=== PATIENT | male | born 1990 | race Caucasian/White ===

== ENCOUNTER 2018-02-22 23:59 | Emergency (ER) | payer OTHER ==
[2018-02-23 00:07] VITALS: Ht 170.2 cm
[2018-02-23 01:34] VITALS: BP 141/89
== END 2018-02-23 01:34 | disposition home or self-care (01) ==
LOC: ED 23:59
DX: N45.1 Epididymitis (principal)
CPT/HCPCS: Q0092

== ENCOUNTER 2018-06-21 17:52 | Emergency (ER) | payer OTHER ==
[~2018-06-21] VITALS: Ht 167.6 cm; Wt 134.7 kg
[2018-06-21 18:25] VITALS: Ht 167.6 cm; Wt 134.7 kg
[2018-06-21 20:56] VITALS: BP 168/97
== END 2018-06-21 20:56 | disposition home or self-care (01) ==
LOC: ED 17:52
DX: G89.29 Other chronic pain (principal); M54.5 Low back pain; I10 Essential (primary) hypertension; E11.9 Type 2 diabetes mellitus without complications
CPT/HCPCS: J1885

== ENCOUNTER 2018-06-26 09:26 | Emergency (ER) | payer OTHER ==
[~2018-06-26] VITALS: Ht 167.6 cm; Wt 134.3 kg
[2018-06-26 09:57] VITALS: BP 132/92; Ht 167.6 cm; Wt 134.3 kg
== END 2018-06-26 10:35 | disposition home or self-care (01) ==
LOC: ED 09:26
DX: J02.9 Acute pharyngitis, unspecified (principal); I10 Essential (primary) hypertension; G89.29 Other chronic pain
CPT/HCPCS: J1100

== ENCOUNTER 2019-05-07 17:10 | Emergency (ER) | payer OTHER ==
[~2019-05-07] VITALS: Ht 167.6 cm; Wt 125.6 kg
[2019-05-07 17:14] VITALS: Ht 167.6 cm; Wt 125.6 kg
[2019-05-07 19:58] VITALS: BP 132/92
== END 2019-05-07 19:58 | disposition home or self-care (01) ==
LOC: ED 17:10
DX: S61.411A Laceration without foreign body of right hand, initial encounter (principal); I10 Essential (primary) hypertension; G89.29 Other chronic pain; W54.0XXA Bitten by dog, initial encounter; Y93.89 Activity, other specified; Y92.89 Other specified places as the place of occurrence of the external cause; Y99.8 Other external cause status
CPT/HCPCS: 90715; J1885